=== PATIENT | female | born 1975 | race Caucasian/White ===

== ENCOUNTER 2022-03-16 15:28 | Inpatient (IN) | payer MEDICAID, SELFPAY ==
[2022-03-16] VITALS (7 sets, daily range): BP systolic 117–155; BP diastolic 76–104; PULSE 98–137; RESP 15–18; TEMP 35.9–36.8; O2SAT 95–98; BMI 29.5; BMI 42.6
[2022-03-16] MEDS: 0.9% Normal Saline 1,000 ML 999 ML IV (15:59)
[2022-03-16 16:16] LABS: Absolute Lymphocyte Count 1.61 X10^3/uL (0.83-4.51); Absolute Neutrophil Count 4.5 X10^3/uL (2.0-7.7); Basophil# 0.07 X10^3/uL; Basophil% 0.9 % (0-1); Eosinophil# 0.04 X10^3/uL; Eosinophils% 0.5 % (0-5); Hematocrit 40.7 % (37-47); Hemoglobin 13.7 g/dL (12.0-15.0); Lymphocyte # 1.61 X10^3/ul (0.83-4.51); Lymphocyte % 21.6 % (19-41); Mean Corp Hgb Conc 33.7 g/dL (32-36); Mean Corpuscular Hgb 31.9 pg (27.0-32.0); Mean Corpuscular Volume 94.9 fL (81-99); Mean Platelet Vol. 9.7 fl (6.2-12.0); Monocyte# 1.17 X10^3/uL; Monocyte% 15.7 % (0-10); NRBC Flagged by Analyzer 0 % (0-5); Neutrophil # 4.53 X10^3/uL (2.7-7.7); Neutrophil % 60.9 % (47-70); Platelet Count 201 K/mm3 (150-450); RBC Distribution Width CV 14.3 % (11.6-14.6); RBC Distribution Width SD 49.5 fl (35.1-43.9); Red Blood Count 4.29 M/mm3 (4.2-5.4); White Blood Count 7.5 K/mm3 (4.4-11.0)
--- NOTE | 2022-03-16 16:17 | EDS_ITS ---
HPI <NAY Zheng - Last Filed: 03/16/22 17:05> History of Present Illness Chief Complaint: ETOH Intox Narrative Narrative: 46-year-old female with history of alcohol abuse, hypertension presents to the emergency department for alcohol detox. Patient states that she does have a history of seizures. She last tried to quit drinking 8 years ago, she was able to succeed however she did have seizures. Patient states that she has been drinking heavily for greater than 1 year, and is affecting her life and she would like to be detoxed. Patient denies any suicidal homicidal ideation. Patient denies any recent falls. Last alcoholic drink was 30 minutes prior to arrival. Patient states that she drinks 224 ounce cans of beers as well as several shots of hard liquor daily. Patient states that she can go anywhere from 3 to 4 hours before she starts getting shaky and feeling ill. PFSH <NAY Zheng - Last Filed: 03/16/22 17:05> [facility] Medical History Alcohol abuse Home Medications NK 03/16/22 [History Last Taken Unknown] Allergy/AdvReac Type Severity Reaction Status Date / Time No Known Allergies Allergy Verified 03/16/22 15:29 Social History (Updated 03/16/22 @ 17:[address] Jimi Kelly, ) Smoking Status: Former smoker alcohol intake: current alcohol intake frequency: 3 or more drinks per day ROS <NAY Zheng - Last Filed: 03/16/22 17:05> ROS ED ROS Narrative Constitutional: Negative for fever, chills, weight loss, weakness Eyes: Negative for vision loss, vision change, double vision ENT: Negative for any sore throat, ear pain, congestion Cardiovascular: Negative for any chest pain, tightness, palpitations Respiratory: Negative for any cough, sputum production, hemoptysis, dyspnea, dyspnea on exertion, orthopnea Gastrointestinal: Negative for any abdominal pain, nausea, vomiting, diarrhea, constipation, blood in stool, blood in vomit : Negative for any urinary frequency, dysuria, retention, blood in urine Muscle skeletal: Negative for any muscle joint pain, stiffness, myalgias, arthralgias, neck pain, back pain Neurological: Negative for any headache, syncope, numbness or tingling, dizziness Skin: Negative for any rashes, lumps, itching, abrasions, lacerations Psychiatric: Negative for any depression, stress, suicidal ideation, homicidal ideation. Positive for anxiety Hematologic: Negative for any easy bruising, excessive bruising, easy bleeding Allergies: Negative for any eczema, hives, rash EXAM <NAY Zheng - Last Filed: 03/16/22 17:05> Physical Exam Narrative Exam Narrative: Vital signs reviewed. Patient alert and oriented x4. Patient is tearful however in no distress. HEET: Head normocephalic atraumatic, TMs clear bilaterally. Posterior pharynx is clear, moist mucous membranes. Nares clear bilaterally. Neck: Supple with no lymphadenopathy or tenderness. No signs of meningismus, negative jolt sign. Cardiac: tachycardic rate no murmurs gallops or rubs, equal peripheral pulses bilaterally. Respiratory: Lungs clear to auscultation bilaterally. No chest tenderness. Abdomen: Soft, nontender, nondistended. No abdominal bruit or pulsatile masses. No hepatosplenomegaly Extremities: No peripheral edema, no signs of gross trauma or deformity. Active full range of motion of all extremities. Neuro: Cranial nerves II through XII intact, no focal neurological deficits. Skin: Clean dry and intact with no rash, purpura, petechiae, vesicles or pustules. Backs/flank: No CVA tenderness, no midline spinal tenderness, no deformity. Psych: Normal mood and affect. No SI, HI or acute psychosis. Const Vital Signs: 03/16/22 15:29 03/16/22 15:39 03/16/22 16:29 Temperature 96.6 F L Temperature Source Temporal Pulse Rate 137 H 116 H 115 H Respiratory Rate 18 15 18 Blood Pressure 151/104 H 155/99 H Blood Pressure Mean 119 117 Pulse Ox 97 98 95 Oxygen Delivery Method Room Air Room Air Room Air <Dr. Jimi Francis DO - Last Filed: 03/16/22 16:39> Physical Exam Const Vital Signs: 03/16/22 15:29 03/16/22 15:39 03/16/22 16:29 Temperature 96.6 F L Temperature Source Temporal Pulse Rate 137 H 116 H 115 H Respiratory Rate 18 15 18 Blood Pressure 151/104 H 155/99 H Blood Pressure Mean 119 117 Pulse Ox 97 98 95 Oxygen Delivery Method Room Air Room Air Room Air MDM <NAY Zheng - Last Filed: 03/16/22 17:05> [facility] Lab Data Labs: Laboratory Results - last 24 hr 03/16/22 03/16/22 03/16/22 16:00 16:00 16:00 WBC 7.5 RBC 4.29 Hgb 13.7 Hct 40.7 MCV 94.9 MCH 31.9 MCHC 33.7 RDW Std Deviation 49.5 H RDW Coeff of Bailee 14.3 Plt Count 201 MPV 9.7 Immature Gran % (Auto) 0.400 Neut % (Auto) 60.9 Lymph % (Auto) 21.6 [place] % (Auto) 15.7 H Eos % (Auto) 0.5 Baso % (Auto) 0.9 Absolute Neuts (auto) 4.5 Absolute Lymphs (auto) 1.61 Nucleated RBC % 0 Sodium Potassium Chloride Carbon Dioxide Anion Gap BUN Creatinine Estim Creat Clear Calc Est GFR (MDRD) Af Amer Est GFR (MDRD) Non-Af BUN/Creatinine Ratio Glucose Calcium Total Bilirubin AST ALT Alkaline Phosphatase Total Protein Albumin Globulin Albumin/Globulin Ratio Lipase Serum , Qual Urine Opiates Screen NEGATIVE Urine Methadone Screen NEGATIVE Ur Barbiturates Screen NEGATIVE Ur Phencyclidine Scrn NEGATIVE Ur Amphetamines Screen NEGATIVE MDMA (Ecstasy) Screen NEGATIVE U Benzodiazepines Scrn NEGATIVE Urine Cocaine Screen NEGATIVE U Cannabinoids Screen NEGATIVE Ur Drug Screen Comment Ethyl Alcohol 256.0 03/16/22 03/16/22 16:00 16:00 WBC RBC Hgb Hct MCV MCH MCHC RDW Std Deviation RDW Coeff of Bailee Plt Count MPV Immature Gran % (Auto) Neut % (Auto) Lymph % (Auto) [place] % (Auto) Eos % (Auto) Baso % (Auto) Absolute Neuts (auto) Absolute Lymphs (auto) Nucleated RBC % Sodium 138 Potassium 3.6 Chloride 101 Carbon Dioxide 23.0 Anion Gap 14 BUN 1 L Creatinine 0.77 Estim Creat Clear Calc 83.02 Est GFR (MDRD) Af Amer 104 Est GFR (MDRD) Non-Af 86 BUN/Creatinine Ratio 1.3 L Glucose 136 H Calcium 8.7 Total Bilirubin 1.00 AST 259 H ALT 74 H Alkaline Phosphatase 114 Total Protein 7.8 Albumin 3.1 L Globulin 4.7 H Albumin/Globulin Ratio 0.7 L Lipase 799 H Serum , Qual NEGATIVE Urine Opiates Screen Urine Methadone Screen Ur Barbiturates Screen Ur Phencyclidine Scrn Ur Amphetamines Screen MDMA (Ecstasy) Screen U Benzodiazepines Scrn Urine Cocaine Screen U Cannabinoids Screen Ur Drug Screen Comment Ethyl Alcohol Treatment and Re-Evaluation Narrative: Patient appears well, patient appears nontoxic, vital signs are stable. Patient presents to the emergency department with complaints of alcohol abuse, wanting of detox.Patient is willing, tearful, no suicidal homicidal ideation. Patient is currently intoxicated with a alcohol level 256. No other drug use. Patient CBC was unremarkable, patient's chemistry showed a BUN of 1, creatinine 0.77, patient does have elevation of her liver enzymes which is consistent with alcohol abuse, AST is 259 with an ALT of 74. Patient's lipase was elevated 799. Patient is currently having no pain. Did speak with hospitalist, patient was given 1 L normal saline is stable for admission for inpatient detox. <Dr. Jimi Francis, DO - Last Filed: 03/16/22 16:39> [facility] Narrative Medical decision making narrative: I have personally performed a face to face assessment of the patient and have reviewed the RAFAEL Note. I performed a substantive portion of the visit including all aspects of the following. My blue findings include: History: Patient presents requesting detox from alcohol. Patient states she drinks 2 24 ounce beers and 3-4 shots of hard liquor per day. Patient states she went through alcohol Anonymous several years ago. Patient states she has been drinking for several years. Patient denies any suicidal or homicidal ideations. Patient denies any drug use. Patient has never been to detox here in the past. Patient states her last drink was approximately 30 minutes prior to arrival. Exam: Vital signs are stable except for mildly elevated blood pressure 151/104 and a mild tachycardia of 116. Patient is afebrile. Patient is in no acute distress. Oral mucosa is pink and moist. Neck is supple. Trachea is midline. There is no JVD. Heart was regular rate and rhythm. Lungs are clear and equal bilaterally. Abdomen is soft. Bowel sounds are normal. There is no tenderness. Cranial nerves II through XII are intact. There are no focal motor or sensory deficits noted. Medical Decision Making: Basic labs were obtained. CBC was within normal limits. Comprehensive metabolic profile was essentially within normal limits with the exception of an elevated AST of 259 and ALT of 74. Lipase was slightly elevated at 799. Serum alcohol level was 256. Urine tox screen was negative. Serum hCG was negative. Case was discussed with the hospitalist. He will admit the patient to his service. Patient understood and was agreeable with the plan. All questions were answered. Lab Data Labs: Laboratory Results - last 24 hr 03/16/22 03/16/22 03/16/22 16:00 16:00 16:00 WBC 7.5 RBC 4.29 Hgb 13.7 Hct 40.7 MCV 94.9 MCH 31.9 MCHC 33.7 RDW Std Deviation 49.5 H RDW Coeff of Bailee 14.3 Plt Count 201 MPV 9.7 Immature Gran % (Auto) 0.400 Neut % (Auto) 60.9 Lymph % (Auto) 21.6 [place] % (Auto) 15.7 H Eos % (Auto) 0.5 Baso % (Auto) 0.9 Absolute Neuts (auto) 4.5 Absolute Lymphs (auto) 1.61 Nucleated RBC % 0 Sodium Potassium Chloride Carbon Dioxide Anion Gap BUN Creatinine Estim Creat Clear Calc Est GFR (MDRD) Af Amer Est GFR (MDRD) Non-Af BUN/Creatinine Ratio Glucose Calcium Total Bilirubin AST ALT Alkaline Phosphatase Total Protein Albumin Globulin Albumin/Globulin Ratio Lipase Serum , Qual Urine Opiates Screen NEGATIVE Urine Methadone Screen NEGATIVE Ur Barbiturates Screen NEGATIVE Ur Phencyclidine Scrn NEGATIVE Ur Amphetamines Screen NEGATIVE MDMA (Ecstasy) Screen NEGATIVE U Benzodiazepines Scrn NEGATIVE Urine Cocaine Screen NEGATIVE U Cannabinoids Screen NEGATIVE Ur Drug Screen Comment Ethyl Alcohol 256.0 03/16/22 03/16/22 16:00 16:00 WBC RBC Hgb Hct MCV MCH MCHC RDW Std Deviation RDW Coeff of Bailee Plt Count MPV Immature Gran % (Auto) Neut % (Auto) Lymph % (Auto) [place] % (Auto) Eos % (Auto) Baso % (Auto) Absolute Neuts (auto) Absolute Lymphs (auto) Nucleated RBC % Sodium 138 Potassium 3.6 Chloride 101 Carbon Dioxide 23.0 Anion Gap 14 BUN 1 L Creatinine 0.77 Estim Creat Clear Calc 83.02 Est GFR (MDRD) Af Amer 104 Est GFR (MDRD) Non-Af 86 BUN/Creatinine Ratio 1.3 L Glucose 136 H Calcium 8.7 Total Bilirubin 1.00 AST 259 H ALT 74 H Alkaline Phosphatase 114 Total Protein 7.8 Albumin 3.1 L Globulin 4.7 H Albumin/Globulin Ratio 0.7 L Lipase 799 H Serum , Qual NEGATIVE Urine Opiates Screen Urine Methadone Screen Ur Barbiturates Screen Ur Phencyclidine Scrn Ur Amphetamines Screen MDMA (Ecstasy) Screen U Benzodiazepines Scrn Urine Cocaine Screen U Cannabinoids Screen Ur Drug Screen Comment Ethyl Alcohol Discharge Plan Triage Chief Complaint: ETOH Intox Other Complaint: Substance Abuse ED Midlevel Provider: Abhilash Duvall ED Provider: Jimi Francis Dx/Rx/DC Orders Clinical Impression: Alcohol withdrawal, S/P alcohol detoxification Prescriptions: No Action NK Primary Care Provider: ROSALVA KOEHLER Referrals: ROSALVA KOEHLER [Other] Disposition Disposition: Acute Care [facility]
[2022-03-16 16:21] LABS: Internal QC Validated? YES +Cl - CLEAR BKGD; Pregnancy, Serum, hCG Quali. NEGATIVE Negative
[2022-03-16 16:28] LABS: Amphetamine Urine VISTA NEGATIVE (<1000 ng/mL); Barbiturate Urine VISTA NEGATIVE (< 200 ng/mL); Benzodiazepine Urine VISTA NEGATIVE (< 200 ng/mL); Cocaine Urine VISTA NEGATIVE (< 300 ng/mL); Ecstacy Urine VISTA NEGATIVE (< 500 ng/mL); Methadone Urine VISTA NEGATIVE (< 300 ng/mL); PCP Urine VISTA NEGATIVE (< 25 ng/mL); THC Urine VISTA NEGATIVE (< 50 ng/mL); Vista UDS pH Range 6
[2022-03-16 16:29] LABS: ALB/GLOB Ratio 0.7 RATIO (0.9-2.4); AST(SGOT) 259 U/L (15-37); Alanine Aminotransfer ALT/SGPT 74 U/L (13-56); Albumin, Serum 3.1 g/dL (3.2-5.0); Alkaline Phosphatase 114 U/L (45-117); Anion Gap 14 (5-15); BUN 1 mg/dL (7-18); BUN/Creat Ratio 1.3 RATIO (10-20); Calcium,Total 8.7 mg/dL (8.5-10.1); Chloride 101 mmol/L (98-107); Creatinine, Serum 0.77 mg/dL (0.55-1.02); EST Glomerular Filtration Rate 86 mL/min (>60); Est Glom Filt Rate - Afr Amer 104 mL/min (>60); Estimated Creatinine Clearance 83.02 ml/min; Globulin 4.7 g/dL (2.2-4.2); Glucose 136 mg/dL (74-106); Lipase 799 U/L (73-393); Potassium 3.6 mmol/L (3.5-5.1); Protein, Total 7.8 g/dL (6.4-8.2); Sodium Level 138 mmol/L (136-145)
--- NOTE | 2022-03-16 16:40 | NURSING ---
DR DELROY RUSSELL
--- NOTE | 2022-03-16 16:58 | PCM.HP.STD ---
HPI - General General Date of Service: 03/16/22 Chief Complaint: Requesting treatment for alcohol detox HPI Narrative ETHEL TORRES, is a 46 F who presents seeking treatment for alcohol detoxification. Patient drinks 2 large high prove beers per day plus several shots per day. Patient has been drinking heavily over the past year. Prior to that, patient had been sober. Patient does have a history of delirium tremens and alcohol withdrawal seizures. Patient does not have any symptoms at this time but her last drink was at 1500 today. Patient does note that she has had increased lower extremity edema over period of time and has put on weight overall. She does have a history of elevated liver test that previously was attributed to her alcohol use. Patient tells me that after she stopped drinking, during that period of sobriety, her liver tests improved. [facility] Medical History Alcohol abuse Home Medications NK 03/16/22 [History Last Taken Unknown] Allergy/AdvReac Type Severity Reaction Status Date / Time No Known Allergies Allergy Verified 03/16/22 15:29 Social History (Updated 03/16/22 @ 17:[address] Jimi Kelly, ) Smoking Status: Former smoker alcohol intake: current alcohol intake frequency: 3 or more drinks per day ROS ROS Narrative All review of systems were negative except as mentioned above in the history of present illness and the other review of systems. Vital Signs Vital Signs Vital Signs: 03/16/22 15:29 03/16/22 15:39 03/16/22 16:29 Temperature 35.9 C L Temperature Source Temporal Pulse Rate 137 H 116 H 115 H Respiratory Rate 18 15 18 Blood Pressure 151/104 H 155/99 H Blood Pressure Mean 119 117 Pulse Ox 97 98 95 Oxygen Delivery Method Room Air Room Air Room Air Weight Weight: 81.647 kg Body Mass Index (BMI) 29.5 Results Lab / Micro Data Attestation: I reviewed the patient's lab results. Result Diagrams: 03/16/22 16:00 03/16/22 16:00 Labs: Laboratory Results - last 24 hr 03/16/22 16:00: WBC 7.5, RBC 4.29, Hgb 13.7, Hct 40.7, MCV 94.9, MCH 31.9, MCHC 33.7, RDW Std Deviation 49.5 H, RDW Coeff of Bailee 14.3, Plt Count 201, MPV 9.7, Immature Gran % (Auto) 0.400, Neut % (Auto) 60.9, Lymph % (Auto) 21.6, [place] % (Auto) 15.7 H, Eos % (Auto) 0.5, Baso % (Auto) 0.9, Absolute Neuts (auto) 4.5, Absolute Lymphs (auto) 1.61, Nucleated RBC % 0 03/16/22 16:00: Ethyl Alcohol 256.0 03/16/22 16:00: Urine Opiates Screen NEGATIVE, Urine Methadone Screen NEGATIVE, Ur Barbiturates Screen NEGATIVE, Ur Phencyclidine Scrn NEGATIVE, Ur Amphetamines Screen NEGATIVE, MDMA (Ecstasy) Screen NEGATIVE, U Benzodiazepines Scrn NEGATIVE, Urine Cocaine Screen NEGATIVE, U Cannabinoids Screen NEGATIVE, Ur Drug Screen Comment 03/16/22 16:00: Serum , Qual NEGATIVE 03/16/22 16:00: Sodium 138, Potassium 3.6, Chloride 101, Carbon Dioxide 23.0, Anion Gap 14, BUN 1 L, Creatinine 0.77, Estim Creat Clear Calc 83.02, Est GFR (MDRD) Af Amer 104, Est GFR (MDRD) Non-Af 86, BUN/Creatinine Ratio 1.3 L, Glucose 136 H, Calcium 8.7, Total Bilirubin 1.00, AST 259 H, ALT 74 H, Alkaline Phosphatase 114, Total Protein 7.8, Albumin 3.1 L, Globulin 4.7 H, Albumin/Globulin Ratio 0.7 L, Lipase 799 H Assessment & Plan Assessment/Plan (1) Alcohol withdrawal: QUALIFIERS: Complication of substance-induced condition: uncomplicated Qualified Code(s): F10.930 - Alcohol use, unspecified with withdrawal, uncomplicated PLAN: Anticipated Patient not actively going through withdrawal but it is anticipated. Patient's last drink was 2 hours prior. Patient does have a history of serious alcohol withdrawal symptoms, including alcohol withdrawal seizures and delirium tremens Will initiate her on phenobarbital Continue additional agents as needed for other somatic complaints with her withdrawal (2) Lower extremity edema: PLAN: Has been chronic. Patient does have very tight edema in her lower extremities Patient does have a history of elevated liver test in the past and her transaminases are currently elevated Cannot rule out cardiac component, including pulmonary hypertension. We will check a ultrasound of her liver Start furosemide (3) Transaminitis: PLAN: Due to alcohol. Cannot rule out underlying cirrhosis. Check ultrasound of her liver PLAN: Plan VTE prophylaxis: Enoxaparin Charges/Coding Visit Charges Inpatient E&M: 70504 Init Hosp L2
--- NOTE | 2022-03-16 17:11 | NURSING ---
MED SURG JOPPERI ALCOHOL INTOX, DETOX
[2022-03-16] MEDS: Ibuprofen 600 MG Tablet PO (17:24)
[2022-03-16] MEDS: Phenobarbital 32.4 MG Tablet 64.8 MG PO ×2 (18:00→21:42)
[2022-03-16] MEDS: Furosemide 40 MG Tablet PO (18:39)
[2022-03-16] MEDS: Nystatin Powder 15gm Bottle 1 APPLIC TOPICAL (21:41)
[2022-03-16] MEDS: traZODone 100 MG Tablet PO (21:42)
[2022-03-16] MEDS: hydrOXYzine PAM 25 MG Capsule 50 MG PO (21:47)
[2022-03-16] MEDS: 0.9% Saline Lock 10 ML Syringe IV (21:47)
[2022-03-17 01:33] VITALS: BP 132/98; PULSE 105; RESP 18; TEMP 36.6; O2SAT 97
[2022-03-17] MEDS: Ibuprofen 600 MG Tablet PO ×3 (01:39→20:16)
[2022-03-17] MEDS: Phenobarbital 32.4 MG Tablet 64.8 MG PO ×6 (01:40→22:01)
[2022-03-17] MEDS: Gabapentin 300 MG Capsule PO ×3 (01:40→20:17)
--- NOTE | 2022-03-17 05:00 | US_ITS ---
STUDY: ABDOMINAL ULTRASOUND - RIGHT UPPER QUADRANT REASON FOR VISIT: Female, 46 years old transaminitis TECHNIQUE: Ultrasound evaluation of the right upper quadrant was performed with real-time and static brasher-scale imaging. TECHNICAL QUALITY: Adequate. COMPARISON: None. FINDINGS: Liver: The liver is enlarged and measures 19.9 cm. There is increased echogenicity consistent with fatty infiltration. The bile ducts are within normal limits. There is hepatic color flow. The direction of portal flow is hepatopetal. There is no demonstrated mass lesion. Gallbladder: The patient is status post cholecystectomy. Common Bile Duct (C.B.D.): The common bile duct measures 6.9 mm. Pancreas: Normal size of the head, body and tail of the pancreas. There is increased echogenicity of the pancreas. There is no demonstrated pancreatic mass or cyst. Right Kidney: Normal size of the right kidney. The right kidney measures 11 cm x 6.2 cm x 4.6 cm. Normal renal cortex. The right cortex measures 1.3 cm. There is no demonstrated renal mass or cyst. There is no right hydronephrosis. US/Abdomen Limited IMPRESSION: Hepatomegaly and fatty infiltration of the liver. Status post cholecystectomy. Electronically Signed: Darnell Bazzi MD at 13:47 EST ,
[2022-03-17 05:47] VITALS: BP 129/97; PULSE 97; RESP 18; TEMP 36.8; O2SAT 96
[2022-03-17] MEDS: hydrOXYzine PAM 25 MG Capsule 50 MG PO (05:50)
[2022-03-17 06:13] LABS: ALB/GLOB Ratio 0.6 RATIO (0.9-2.4); AST(SGOT) 204 U/L (15-37); Alanine Aminotransfer ALT/SGPT 63 U/L (13-56); Albumin, Serum 2.9 g/dL (3.2-5.0); Alkaline Phosphatase 107 U/L (45-117); Anion Gap 11 (5-15); BUN 1 mg/dL (7-18); BUN/Creat Ratio 1.5 RATIO (10-20); Calcium,Total 8.5 mg/dL (8.5-10.1); Chloride 101 mmol/L (98-107); Creatinine, Serum 0.68 mg/dL (0.55-1.02); EST Glomerular Filtration Rate 100 mL/min (>60); Est Glom Filt Rate - Afr Amer 121 mL/min (>60); Estimated Creatinine Clearance 90.22 ml/min; Globulin 4.7 g/dL (2.2-4.2); Glucose 118 mg/dL (74-106); Potassium 3.4 mmol/L (3.5-5.1); Protein, Total 7.6 g/dL (6.4-8.2); Sodium Level 137 mmol/L (136-145)
--- NOTE | 2022-03-17 07:46 | PN.HOSP_ITS ---
Subjective Subjective Patient is a 42-year-old gentleman with history of chronic alcohol dependence presented with alcohol withdrawal Objective Data Objective Data Vital Signs: Vital Signs Temp Pulse Resp BP Pulse Ox O2 Del Method 98.3 F 97 18 129/97 H 96 Room Air 03/17/22 05:47 03/17/22 05:47 03/17/22 05:47 03/17/22 05:47 03/17/22 05:47 03/17/22 05:47 Oxygen Delivery Method Room Air Weight: 112.718 kg Body Mass Index (BMI) 42.6 Intake & Output: Intake and Output for Last 24 Hours 03/15/22 03/16/22 03/17/22 23:59 23:59 23:59 Intake Total 1899 / 1899 Balance 1899 / 1899 Lab / Micro Data Result Diagrams: 03/16/22 16:00 03/17/22 04:54 Labs: Laboratory Results - last 24 hr 03/16/22 16:00: WBC 7.5, RBC 4.29, Hgb 13.7, Hct 40.7, MCV 94.9, MCH 31.9, MCHC 33.7, RDW Std Deviation 49.5 H, RDW Coeff of Bailee 14.3, Plt Count 201, MPV 9.7, Immature Gran % (Auto) 0.400, Neut % (Auto) 60.9, Lymph % (Auto) 21.6, [place] % (Auto) 15.7 H, Eos % (Auto) 0.5, Baso % (Auto) 0.9, Absolute Neuts (auto) 4.5, Absolute Lymphs (auto) 1.61, Nucleated RBC % 0 03/16/22 16:00: Ethyl Alcohol 256.0 03/16/22 16:00: Urine Opiates Screen NEGATIVE, Urine Methadone Screen NEGATIVE, Ur Barbiturates Screen NEGATIVE, Ur Phencyclidine Scrn NEGATIVE, Ur Amphetamines Screen NEGATIVE, MDMA (Ecstasy) Screen NEGATIVE, U Benzodiazepines Scrn NEGATIVE, Urine Cocaine Screen NEGATIVE, U Cannabinoids Screen NEGATIVE, Ur Drug Screen Comment 03/16/22 16:00: Serum , Qual NEGATIVE 03/16/22 16:00: Sodium 138, Potassium 3.6, Chloride 101, Carbon Dioxide 23.0, Anion Gap 14, BUN 1 L, Creatinine 0.77, Estim Creat Clear Calc 83.02, Est GFR (MDRD) Af Amer 104, Est GFR (MDRD) Non-Af 86, BUN/Creatinine Ratio 1.3 L, Glucose 136 H, Calcium 8.7, Total Bilirubin 1.00, AST 259 H, ALT 74 H, Alkaline Phosphatase 114, Total Protein 7.8, Albumin 3.1 L, Globulin 4.7 H, Albumin/Globulin Ratio 0.7 L, Lipase 799 H 03/17/22 04:54: Sodium 137, Potassium 3.4 L, Chloride 101, Carbon Dioxide 25.0, Anion Gap 11, BUN 1 L, Creatinine 0.68, Estim Creat Clear Calc 90.22, Est GFR (MDRD) Af Amer 121, Est GFR (MDRD) Non-Af 100, BUN/Creatinine Ratio 1.5 L, Glucose 118 H, Calcium 8.5, Total Bilirubin 1.80 H, AST 204 H, ALT 63 H, Alkaline Phosphatase 107, Total Protein 7.6, Albumin 2.9 L, Globulin 4.7 H, Albumin/Globulin Ratio 0.6 L Physical Exam Narrative GENERAL: cooperative HEENT: Atraumatic; normocephalic EYES; Anicteric, Normal Conjunctiva NECK; supple, normal thyroid, RESPIRATORY: Diminished to auscultation CARDIOVASCULAR: Regular S1 S2, GI: soft, normoactive bowel sounds, : No Renal angle tenderness; EXTREMITIES: No edema, no clubbing, MUSCULOSKELETAL: no muscle wasting NEURO: Awake; no lateralizing signs. SKIN: No Rash PSYCH; Flat affect Assessment & Plan Assessment/Plan (1) Alcohol withdrawal: QUALIFIERS: Complication of substance-induced condition: uncomplicated Qualified Code(s): F10.930 - Alcohol use, unspecified with withdrawal, uncomplicated PLAN: Plan Patient is a 42-year-old gentleman with history of chronic alcohol dependence presented with alcohol withdrawal 1. Acute alcohol withdrawal ? Admitted to regular nursing floor managed with phenobarb taper 2. Elevated transaminitis ? Patient LFT pattern consistent with chronic alcohol abuse monitoring. Right upper quadrant ultrasound was ordered awaiting results 3. Class III obesity with BMI of 42.7 ? Weight loss advised 4. DVT prophylaxis ? Encourage early ambulation Charges/Coding Visit Charges Inpatient E&M: 00958 Subs Hosp L2
[2022-03-17] MEDS: Enoxaparin 40 MG/0.4 ML Syringe SC (09:45)
[2022-03-17] MEDS: Thiamine Hydrochloride 100 MG Tablet PO (09:46)
[2022-03-17] MEDS: Folic Acid 1 MG Tablet PO (09:46)
[2022-03-17] MEDS: Furosemide 40 MG Tablet PO ×2 (09:46→17:11)
[2022-03-17] MEDS: Nystatin Powder 15gm Bottle 1 APPLIC TOPICAL ×2 (09:47→20:17)
[2022-03-17] MEDS: Ondansetron 8 MG Tablet PO (11:24)
--- NOTE | 2022-03-17 11:34 | ADDICTION ---
This adjusto writer operator met with PT to conduct ASAM, MSE, AUDIT, DUDIT assessments and to plan for d/c. PT A+Ox4 and participated actively. All assessments completed and placed in PT's chart. PT plans to f/u with Alcohol Anonymous upon d/c. This worker offered resources for follow-up Natan treatment. PT did not indicate a need for transportation post d/c from [facility].
[2022-03-17 11:45] VITALS: BP 127/92; PULSE 86; RESP 15; TEMP 36.6; O2SAT 96
[2022-03-17 14:06] VITALS: BP 137/92; PULSE 90; RESP 15; TEMP 36.5; O2SAT 97
[2022-03-17 17:19] VITALS: BP 128/89; PULSE 88; RESP 15; TEMP 36.6; O2SAT 95
[2022-03-17 21:19] VITALS: BP 125/85; PULSE 101; RESP 16; TEMP 36.9; O2SAT 97
[2022-03-18] MEDS: Phenobarbital 32.4 MG Tablet 64.8 MG PO ×6 (02:13→22:07)
[2022-03-18 03:19] VITALS: BP 123/78; PULSE 101; RESP 16; TEMP 36.8; O2SAT 95
[2022-03-18] MEDS: Ibuprofen 600 MG Tablet PO ×2 (05:07→20:04)
--- NOTE | 2022-03-18 08:43 | PN.HOSP_ITS ---
Subjective Subjective Patient seen clinical condition appears to be improving Ultrasound of the abdomen obtained on 03/17/2022 demonstrated hepatomegaly and fatty infiltration of the liver. Objective Data Objective Data Vital Signs: Vital Signs Temp Pulse Resp BP Pulse Ox O2 Del Method 98.2 F 101 H 16 123/78 H 95 Room Air 03/18/22 03:19 03/18/22 03:19 03/18/22 03:19 03/18/22 03:19 03/18/22 03:19 03/18/22 03:19 Oxygen Delivery Method Room Air Weight: 112.718 kg Body Mass Index (BMI) 42.6 Intake & Output: Intake and Output for Last 24 Hours 03/16/22 03/17/22 03/18/22 23:59 23:59 23:59 Intake Total 1900 / 1900 500 / 500 Balance 1900 / 1900 500 / 500 Lab / Micro Data Result Diagrams: 03/16/22 16:00 03/17/22 04:54 Radiography Diagnostic Testing: Radiology Impression Abdomen Ultrasound 03/17/22 05:00 IMPRESSION: Hepatomegaly and fatty infiltration of the liver. Status post cholecystectomy. Electronically Signed: Darnell Bazzi MD at 13:47 EST , Physical Exam Narrative GENERAL: cooperative HEENT: Atraumatic; normocephalic EYES; Anicteric, Normal Conjunctiva NECK; supple, normal thyroid, RESPIRATORY: Diminished to auscultation CARDIOVASCULAR: Regular S1 S2, GI: soft, normoactive bowel sounds, : No Renal angle tenderness; EXTREMITIES: No edema, no clubbing, MUSCULOSKELETAL: no muscle wasting NEURO: Awake; no lateralizing signs. SKIN: No Rash PSYCH; Flat affect Assessment & Plan Assessment/Plan (1) Alcohol withdrawal: QUALIFIERS: Complication of substance-induced condition: uncomplicated Qualified Code(s): F10.930 - Alcohol use, unspecified with withdrawal, uncomplicated PLAN: Plan Patient is a 46-year-old female with history of chronic alcohol dependence pr esented with alcohol withdrawal 1. Acute alcohol withdrawal ? Admitted to regular nursing floor managed with phenobarb taper 2. Elevated transaminitis ? Patient LFT pattern consistent with chronic alcohol abuse monitoring. Right upper quadrant ultrasound was ordered awaiting results 3. Alcoholic fatty liver disease ? Ultrasound of the abdomen obtained on 03/17/2022 demonstrated hepatomegaly and fatty infiltration of the liver. This possibly secondary to patient chronic alcohol use as well as her weight. Instructed to follow-up with primary care physician for outpatient monitoring 4. Class III obesity with BMI of 42.7 ? Weight loss advised 5. DVT prophylaxis ? Encourage early ambulation Charges/Coding Visit Charges Inpatient E&M: 79021 Subs Hosp L2
[2022-03-18] MEDS: Furosemide 40 MG Tablet PO ×2 (09:09→18:08)
[2022-03-18] MEDS: Thiamine Hydrochloride 100 MG Tablet PO (09:10)
[2022-03-18] MEDS: Enoxaparin 40 MG/0.4 ML Syringe SC (09:10)
[2022-03-18] MEDS: Folic Acid 1 MG Tablet PO (09:10)
[2022-03-18] MEDS: Nystatin Powder 15gm Bottle 1 APPLIC TOPICAL ×2 (09:11→22:07)
[2022-03-18 09:19] VITALS: BP 128/76; PULSE 96; RESP 16; TEMP 36.8; O2SAT 97
[2022-03-18 15:00] VITALS: BP 123/82; PULSE 89; RESP 17; TEMP 36.9; O2SAT 98
[2022-03-18 19:59] VITALS: BP 122/86; PULSE 115; RESP 15; TEMP 36.3; O2SAT 96
[2022-03-18] MEDS: traZODone 100 MG Tablet PO (20:04)
[2022-03-18] MEDS: Gabapentin 300 MG Capsule PO (23:31)
[2022-03-19] MEDS: Phenobarbital 32.4 MG Tablet 64.8 MG PO ×2 (01:31→07:57)
[2022-03-19] MEDS: hydrOXYzine PAM 25 MG Capsule 50 MG PO (01:38)
[2022-03-19 02:30] VITALS: BP 120/84; PULSE 100; RESP 16; TEMP 36.6; O2SAT 96
--- NOTE | 2022-03-19 07:38 | PCM.PN.HOSP ---
Subjective Subjective Patient seen, requesting to be discharged home. Objective Data Objective Data Vital Signs: Vital Signs Temp Pulse Resp BP Pulse Ox O2 Del Method 97.9 F 100 16 120/84 H 96 Room Air 03/19/22 02:30 03/19/22 02:30 03/19/22 02:30 03/19/22 02:30 03/19/22 02:30 03/19/22 02:30 Oxygen Delivery Method Room Air Weight: 112.718 kg Body Mass Index (BMI) 42.6 Intake & Output: Intake and Output for Last 24 Hours 03/17/22 03/18/22 03/19/22 23:59 23:59 23:59 Intake Total 500 / 1100 800 / 800 Balance 500 / 1100 800 / 800 Lab / Micro Data Result Diagrams: 03/16/22 16:00 03/17/22 04:54 Physical Exam Narrative GENERAL: cooperative HEENT: Atraumatic; normocephalic EYES; Anicteric, Normal Conjunctiva NECK; supple, normal thyroid, RESPIRATORY: Diminished to auscultation CARDIOVASCULAR: Regular S1 S2, GI: soft, normoactive bowel sounds, : No Renal angle tenderness; EXTREMITIES: No edema, no clubbing, MUSCULOSKELETAL: no muscle wasting NEURO: Awake; no lateralizing signs. SKIN: No Rash PSYCH; Flat affect Assessment & Plan Assessment/Plan (1) Alcohol withdrawal: QUALIFIERS: Complication of substance-induced condition: uncomplicated Qualified Code(s): F10.930 - Alcohol use, unspecified with withdrawal, uncomplicated PLAN: Plan Patient is a 46-year-old female with history of chronic alcohol dependence presented with alcohol withdrawal 1. Acute alcohol withdrawal ? Admitted to regular nursing floor managed with phenobarb taper 2. Elevated transaminitis ? Patient LFT pattern consistent with chronic alcohol abuse monitoring. Right upper quadrant ultrasound was ordered awaiting results 3. Alcoholic fatty liver disease ? Ultrasound of the abdomen obtained on 03/17/2022 demonstrated hepatomegaly and fatty infiltration of the liver. This possibly secondary to patient chronic alcohol use as well as her weight. Instructed to follow-up with primary care physician for outpatient monitoring 4. Class III obesity with BMI of 42.7 ? Weight loss advised 5. DVT prophylaxis ? Encourage early ambulation Charges/Coding Visit Charges Inpatient E&M: 83922 Subs Hosp L2
[2022-03-19 07:47] VITALS: BP 115/77; PULSE 92; RESP 18; TEMP 36.4; O2SAT 96
[2022-03-19] MEDS: Thiamine Hydrochloride 100 MG Tablet PO (07:57)
[2022-03-19] MEDS: Folic Acid 1 MG Tablet PO (07:57)
--- NOTE | 2022-03-19 09:11 | PCM.DC.SUM ---
Providers Date of Admission: 03/16/22 Date of Discharge: 03/19/22 Primary Care Physician: ROSALVA KOEHLER Reason For Visit: ALCOHOL WD Diagnosis Discharge Diagnosis (1) Alcohol withdrawal: Status: Acute Code(s): F10.939 - Alcohol use, unspecified with withdrawal, unspecified Qualifiers: Complication of substance-induced condition: uncomplicated Qualified Code(s): F10.930 - Alcohol use, unspecified with withdrawal, uncomplicated Plan Patient is a 46-year-old female with history of chronic alcohol dependence presented with alcohol withdrawal 1. Acute alcohol withdrawal ? Admitted to regular nursing floor managed with phenobarb taper 2. Elevated transaminitis ? Patient LFT pattern consistent with chronic alcohol abuse monitoring. Right upper quadrant ultrasound was ordered awaiting results 3. Alcoholic fatty liver disease ? Ultrasound of the abdomen obtained on 03/17/2022 demonstrated hepatomegaly and fatty infiltration of the liver. This possibly secondary to patient chronic alcohol use as well as her weight. Instructed to follow-up with primary care physician for outpatient monitoring 4. Class III obesity with BMI of 42.7 ? Weight loss advised 5. DVT prophylaxis ? Encourage early ambulation Medications at Discharge Home Medications NK 03/16/22 Hospital Course Summary of Care Provided Minutes Spent on Discharge: 32 Physical Exam Narrative GENERAL: cooperative HEENT: Atraumatic; normocephalic EYES; Anicteric, Normal Conjunctiva NECK; supple, normal thyroid, RESPIRATORY: Diminished to auscultation CARDIOVASCULAR: Regular S1 S2, GI: soft, normoactive bowel sounds, : No Renal angle tenderness; EXTREMITIES: No edema, no clubbing, MUSCULOSKELETAL: no muscle wasting NEURO: Awake; no lateralizing signs. SKIN: No Rash PSYCH; Flat affect Weight / BMI Weight Weight: 112.718 kg Body Mass Index (BMI) 42.6 ABG / Lab / Microbiology Data Result Diagrams: 03/16/22 16:00 03/17/22 04:54 D/C Instructions Discharge Diet: No restrictions Discharge Activity: Return to Normal Activity Call your doctor if you observe: Fever of 101 or Higher, Shortness of breath, Fainting spells and Chest pain Meaningful Use Info Meaningful Use Diagnoses (Choose all that apply): None applicable Discharge Plan Admission Admit Date/Time: 03/16/22 16:54 Attending Provider: Alex Boothe Primary Care Provider: ROSALVA KOEHLER Consulting Providers: Jimi Kelly Discharge Orders/Prescriptions Prescriptions: No Action NK Referrals / Follow Up: ROSALVA KOEHLER [Other] ROSALVA KOEHLER [Other] Disposition Disposition (needs filled in before D/C Order can be placed): Home, Self Care Charges/Coding Visit Charges Inpatient E&M: 59692 Disch Hosp
[2022-03-19] MEDS: Enoxaparin 40 MG/0.4 ML Syringe SC (10:25)
[2022-03-19] MEDS: Nystatin Powder 15gm Bottle 1 APPLIC TOPICAL (10:25)
[2022-03-19] MEDS: Furosemide 40 MG Tablet PO (10:25)
[2022-03-19 12:00] VITALS: BP 130/86; PULSE 100; RESP 18; TEMP 36.6; O2SAT 100
== END 2022-03-19 13:47 | disposition home or self-care (01) | DRG 775 ==
LOC: ED 17:05 → MS3 17:17
PROVIDERS: Nurse Practitioner; Emergency Provider Emergency Medicine; Visit Provider Internal Medicine
DX: F10.239 Alcohol dependence with withdrawal, unspecified (principal); E66.01 Morbid (severe) obesity due to excess calories; K70.9 Alcoholic liver disease, unspecified; Z68.41 Body mass index [BMI] 40.0-44.9, adult; I10 Essential (primary) hypertension; K76.0 Fatty (change of) liver, not elsewhere classified; Z87.891 Personal history of nicotine dependence; Y90.8 Blood alcohol level of 240 mg/100 ml or more; R74.01 Elevation of levels of liver transaminase levels
CPT/HCPCS: 36415; 76705; 80053; 80307; 82077; 83690; 84703; 85025; 97802; 99284; J7030; A4216